=== PATIENT | male | born 1975 | race Caucasian/White ===

== ENCOUNTER 2021-03-16 16:43 | Emergency (ER) | payer SELFPAY ==
[~2021-03-16] VITALS: Ht 165.1 cm; Wt 68.2 kg
[~2021-03-16 16:43] MED LIST: NOCURR
[2021-03-16 18:59] LABS: BASOPHILS % (AUTO) 0.4 % (0.0-2.0); EOSINOPHILS % (AUTO) 1.6 % (1.0-6.0); HEMATOCRIT 45.5 % (41-53); HEMOGLOBIN 15.4 g/dL (13.5-17.5); LYMPHOCYTES % (AUTO) 21.5 % (22.0-44.0); MEAN CORPUSCULAR HEMOGLOBIN 26.9 pg (26.0-34.0); MEAN CORPUSCULAR HGB CONC 33.7 G/dL (31.0-37.0); MEAN CORPUSCULAR VOLUME 80 fL (80-100); MONOCYTES # (AUTO) 0.7 K/uL (0.1-1.0); MONOCYTES % (AUTO) 7.2 % (2.0-9.0); NEUTROPHILS # (AUTO) 6.4 K/uL (1.8-7.7); NEUTROPHILS % (AUTO) 69.3 % (40.0-70.0); PLATELET COUNT (AUTO) 327 K/uL (150-450); RED CELL DISTRIBUTION WIDTH 13.2 % (11.5-14.5)
[2021-03-16] MEDS ORDERED: MECLIZINE HCL 25 MG TABLET PO ONE (19:00)
[2021-03-16 19:16] LABS: ANION GAP 8 mmol/L (8-16); CALCIUM, TOTAL 8.7 mg/dL (8.8-10.5); CARBON DIOXIDE 28 mmol/L (22-29); CHLORIDE 100 mmol/L (98-107); CREATININE 0.81 mg/dL (0.60-1.30); GLOMERULAR FILTR. RATE CALC > 60 mL/min (>60); GLUCOSE,RANDOM 358 mg/dL (70-110); SODIUM SERUM 136 mmol/L (136-145); UREA NITROGEN, BLOOD 18 mg/dL (7-18)
[2021-03-16 19:21] LABS: ALANINE AMINOTRANSFERASE 30 U/L (12-78); ALBUMIN 3.8 g/dL (3.4-5.0); ALKALINE PHOSPHATASE 95 U/L (46-116); ASPARTATE AMINOTRANSFERASE 12 U/L (15-37); BILIRUBIN,TOTAL 0.7 mg/dL (0.1-1.0); TOTAL PROTEIN, SERUM 7.3 g/dL (6.4-8.2)
[2021-03-16 20:02] VITALS: BP 146/98
== END 2021-03-16 20:15 | disposition home or self-care (01) ==
LOC: EMS 16:47
DX: R73.9 Hyperglycemia, unspecified (principal); R42 Dizziness and giddiness; R51.9 Headache, unspecified
CPT/HCPCS: 70450; 80053; 85025; 99284

== ENCOUNTER 2021-11-16 22:35 | Inpatient (IN) | payer OTHER ==
[~2021-11-16] VITALS: Ht 165.1 cm; Wt 78.0 kg
[2021-11-16] MEDS ORDERED: ACETAMINOPHEN 500 MG TABLET PO ONE (23:15)
[2021-11-16] MEDS ORDERED: PIPERACILLIN SODIUM/TAZOBACTAM 4.5 GM in DEXTROSE 5%-WATER 100 ML IV ONE (23:15)
[2021-11-16] MEDS ORDERED: SODIUM CHLORIDE 0.9% 1,000 ML IV ONE (23:15)
[2021-11-16] MEDS ORDERED: SODIUM CHLORIDE 0.9% 2,200 ML IV ONE (23:30)
[2021-11-16 23:41] LABS: BASOPHILS % (AUTO) 0.7 % (0.0-2.0); HEMATOCRIT 45.7 % (41-53); HEMOGLOBIN 15.8 g/dL (13.5-17.5); MEAN CORPUSCULAR HEMOGLOBIN 26.9 pg (26.0-34.0); MEAN CORPUSCULAR HGB CONC 34.5 G/dL (31.0-37.0); MEAN CORPUSCULAR VOLUME 78 fL (80-100); MONOCYTES # (AUTO) 0.2 K/uL (0.1-1.0); MONOCYTES % (AUTO) 2.8 % (2.0-9.0); NEUTROPHILS # (AUTO) 4.1 K/uL (1.8-7.7); NEUTROPHILS % (AUTO) 64.5 % (40.0-70.0); PLATELET COUNT (AUTO) 201 K/uL (150-450); RED BLOOD CELL COUNT(AUTO) 5.85 MIL/uL (4.50-5.90); RED CELL DISTRIBUTION WIDTH 12.7 % (11.5-14.5)
[2021-11-16 23:52] LABS: COVID AG,FIA SOURCE NASAL SWAB
[2021-11-17 00:09] LABS: ALANINE AMINOTRANSFERASE 56 U/L (12-78); ALBUMIN 3.7 g/dL (3.4-5.0); ALKALINE PHOSPHATASE 177 U/L (46-116); ANION GAP 10 mmol/L (8-16); ASPARTATE AMINOTRANSFERASE 56 U/L (15-37); BILIRUBIN,TOTAL 0.7 mg/dL (0.1-1.0); CALCIUM, TOTAL 9.3 mg/dL (8.8-10.5); CARBON DIOXIDE 23 mmol/L (22-29); CHLORIDE 100 mmol/L (98-107); CREATININE 1.12 mg/dL (0.60-1.30); GLOMERULAR FILTR. RATE CALC > 60 mL/min (>60); POTASSIUM 3.9 mmol/L (3.5-5.1); SODIUM SERUM 133 mmol/L (136-145); TOTAL PROTEIN, SERUM 7.9 g/dL (6.4-8.2); UREA NITROGEN, BLOOD 20 mg/dL (7-18)
[2021-11-17 00:20] LABS: GLUCOSE,RANDOM 474 mg/dL (70-110)
[2021-11-17 00:22] LABS: B-TYPE NATRIURETIC PEPTIDE 25 pg/mL (0-100)
[2021-11-17] MEDS ORDERED: IOHEXOL 350 MG/ML 100 ML VIAL ONE (00:22)
[2021-11-17] MEDS ORDERED: SODIUM CHLORIDE 0.9% 100 ML ONE (00:22)
[2021-11-17] MEDS ORDERED: INSULIN REGULAR, HUMAN 100 UNITS/ML IVP ONE (00:30)
[2021-11-17] MEDS ORDERED: MAGNESIUM HYDROXIDE SUSPENSION 30 ML UDCUP PO PRN (00:45)
[2021-11-17] MEDS ORDERED: HYDROCODONE/ACETAMINOPHEN 5-325 MG TABLET PO PRN (00:45)
[2021-11-17] MEDS ORDERED: ONDANSETRON HCL 4 MG/2 ML VIAL IVP PRN (00:45)
[2021-11-17] MEDS ORDERED: BISACODYL 10 MG RECTAL RECTAL SUPPOSITORY PR PRN (00:45)
[2021-11-17] MEDS ORDERED: DEXTROSE 50%-WATER 25 GM/50 ML SYRINGE IVP PRN (00:45)
[2021-11-17] MEDS ORDERED: SODIUM CHLORIDE 0.9% 1,000 ML IV ONE ×2 (00:45→01:45)
[2021-11-17] MEDS ORDERED: MORPHINE SULFATE 2 MG/ML SYRINGE IVP PRN (00:45)
[2021-11-17] MEDS ORDERED: ACETAMINOPHEN 325 MG TABLET PO PRN (00:45)
[2021-11-17] MEDS ORDERED: ZOLPIDEM TARTRATE 5 MG TABLET PO PRN (00:45)
[2021-11-17 01:41] LABS: LACTIC ACID 2.2 mmol/L (0.4-2.0)
[2021-11-17 01:46] LABS: GLUCOMETER DEV NAME(LOC) ERT.5; GLUCOSE,POINT OF CARE 325 MG/DL (70-110)
[2021-11-17] MEDS ORDERED: ASPIRIN 81 MG CHEWABLE TABLET PO ONE (04:00)
[2021-11-17 05:07] LABS: APPEARANCE,URINE CLEAR (CLEAR); BILIRUBIN,URINE NEGATIVE (NEGATIVE); GLUCOSE, URINE (UA) >=1000 mg/dL (NEGATIVE); LEUKOCYTE ESTERASE ,URINE NEGATIVE (NEGATIVE); NITRATE,URINE POSITIVE (NEGATIVE); OCCULT BLOOD,URINE TRACE (NEGATIVE); PH,URINE 5.5 (5.0-8.0); PROTEIN,URINE 30-70 mg/dL (NEGATIVE); UROBILINOGEN,URINE <=1.0 mg/dL (<=1.0)
[2021-11-17 05:11] LABS: SPECIFIC GRAVITIY, URINE > 1.035 (1.003-1.030)
[2021-11-17 05:29] LABS: BACTERIA,URINE Few /HPF (None Seen)
[2021-11-17] MEDS: PIPERACILLIN/TAZO 3.375 GM/D5W 50 ML IV SCH ×4 (06:00→23:26)
[2021-11-17] MEDS ORDERED: HEPARIN SODIUM,PORCINE 5,000 UNITS/ML VIAL IVP PRN ×2 (07:00)
[2021-11-17 07:14] LABS: BASOPHILS % (AUTO) 0.3 % (0.0-2.0); EOSINOPHILS % (AUTO) 0 % (1.0-6.0); HEMATOCRIT 39.3 % (41-53); HEMOGLOBIN 13.4 g/dL (13.5-17.5); LYMPHOCYTES # (AUTO) 0.5 K/uL (1.0-4.8); LYMPHOCYTES % (AUTO) 4.8 % (22.0-44.0); MEAN CORPUSCULAR HEMOGLOBIN 26.7 pg (26.0-34.0); MEAN CORPUSCULAR HGB CONC 34.2 G/dL (31.0-37.0); MEAN CORPUSCULAR VOLUME 78 fL (80-100); MONOCYTES # (AUTO) 0.6 K/uL (0.1-1.0); MONOCYTES % (AUTO) 6.4 % (2.0-9.0); NEUTROPHILS # (AUTO) 8.8 K/uL (1.8-7.7); PLATELET COUNT (AUTO) 220 K/uL (150-450); RED BLOOD CELL COUNT(AUTO) 5.04 MIL/uL (4.50-5.90); RED CELL DISTRIBUTION WIDTH 12.9 % (11.5-14.5)
[2021-11-17 07:17] LABS: NEUTROPHILS % (AUTO) 88.5 % (40.0-70.0)
[2021-11-17 07:32] LABS: INR 1.1 (0.9-1.1); PROTHROMBIN TIME 11.9 SEC (9.4-11.6)
[2021-11-17] MEDS ORDERED: HEPARIN SODIUM,PORCINE 5,000 UNITS/ML VIAL SQ SCH (08:00)
[2021-11-17 08:50] VITALS: BP 109/65
[2021-11-17 09:28] VITALS: BP 166/98
[2021-11-17] MEDS: HEPARIN SODIUM 25000 UNITS/D5W 250 ML IV PRN (10:45)
[2021-11-17] MEDS: DOCUSATE SODIUM 100 MG CAPSULE PO SCH ×2 (10:45→21:12)
[2021-11-17] MEDS: PANTOPRAZOLE SODIUM 40 MG DR TABLET PO SCH (10:45)
[2021-11-17] MEDS: INSULIN GLARGINE,HUM.REC.ANLOG 100 UNITS/ML SQ SCH ×2 (10:46→21:06)
[2021-11-17] MEDS: INSULIN LISPRO 100 UNITS/ML SQ PRN ×3 (11:40→21:05)
[2021-11-17] MEDS ORDERED: NITROGLYCERIN 0.4 MG SUBLINGUAL TABLET #25 SL PRN (11:45)
[2021-11-17] MEDS ORDERED: SODIUM CHLORIDE 0.9% 250 ML IV ONE (11:49)
[2021-11-17 12:04] VITALS: BP 114/60
[2021-11-17] MEDS: ATORVASTATIN CALCIUM 40 MG TABLET PO SCH (14:43)
[2021-11-17] MEDS: ASPIRIN 81 MG DR TABLET PO SCH (14:44)
[2021-11-17 16:00] VITALS: BP 104/67
[2021-11-17 19:21] VITALS: BP 102/66
[2021-11-17 20:21] LABS: GLUCOMETER DEV NAME(LOC) 5N.1C; GLUCOSE,POINT OF CARE 312 MG/DL (70-110)
[2021-11-17] MEDS: METOPROLOL TARTRATE 25 MG TABLET PO SCH (21:12)
[2021-11-17 23:41] VITALS: BP 104/67
[2021-11-18 02:01] LABS: GLUCOMETER DEV NAME(LOC) 5S.2B; GLUCOSE,POINT OF CARE 204 MG/DL (70-110)
[2021-11-18 02:01] LABS: GLUCOMETER DEV NAME(LOC) 5S.2B; GLUCOSE,POINT OF CARE 228 MG/DL (70-110)
[2021-11-18 04:34] VITALS: BP 106/70
[2021-11-18] MEDS: PIPERACILLIN/TAZO 3.375 GM/D5W 50 ML IV SCH ×2 (06:26→11:53)
[2021-11-18 06:27] LABS: BASOPHILS % (AUTO) 0.8 % (0.0-2.0); EOSINOPHILS % (AUTO) 1.2 % (1.0-6.0); HEMATOCRIT 37.6 % (41-53); HEMOGLOBIN 12.8 g/dL (13.5-17.5); LYMPHOCYTES # (AUTO) 1.8 K/uL (1.0-4.8); LYMPHOCYTES % (AUTO) 22.3 % (22.0-44.0); MEAN CORPUSCULAR HEMOGLOBIN 26.5 pg (26.0-34.0); MEAN CORPUSCULAR HGB CONC 34.1 G/dL (31.0-37.0); MEAN CORPUSCULAR VOLUME 78 fL (80-100); MONOCYTES # (AUTO) 0.7 K/uL (0.1-1.0); MONOCYTES % (AUTO) 9.3 % (2.0-9.0); NEUTROPHILS # (AUTO) 5.4 K/uL (1.8-7.7); NEUTROPHILS % (AUTO) 66.4 % (40.0-70.0); PLATELET COUNT (AUTO) 228 K/uL (150-450); RED BLOOD CELL COUNT(AUTO) 4.83 MIL/uL (4.50-5.90)
[2021-11-18] MEDS: HEPARIN SODIUM 25000 UNITS/D5W 250 ML IV PRN (06:28)
[2021-11-18] MEDS: INSULIN LISPRO 100 UNITS/ML SQ PRN ×2 (06:37→11:52)
[2021-11-18 06:50] LABS: HEMOGLOBIN A1C 12.9 % (3.8-5.6)
[2021-11-18 06:56] LABS: ANION GAP 4 mmol/L (8-16); CALCIUM, TOTAL 7.6 mg/dL (8.8-10.5); CARBON DIOXIDE 28 mmol/L (22-29); CHLORIDE 105 mmol/L (98-107); CHOL/HDL RATIO 3.8 (4.2-7.3); CHOLESTEROL 102 mg/dL (131-200); CREATININE 0.73 mg/dL (0.60-1.30); GLOMERULAR FILTR. RATE CALC > 60 mL/min (>60); GLUCOSE,RANDOM 264 mg/dL (70-110); HDL CHOLESTEROL 27 mg/dL (40-60); LDL CHOL (CALC.) 53 mg/dL (0-130); POTASSIUM 3.3 mmol/L (3.5-5.1); SODIUM SERUM 137 mmol/L (136-145); TRIGLYCERIDES 112 mg/dL (15-150); UREA NITROGEN, BLOOD 17 mg/dL (7-18)
[2021-11-18 07:27] VITALS: BP 119/75
[2021-11-18] MEDS: METOPROLOL TARTRATE 25 MG TABLET PO SCH (09:00)
[2021-11-18] MEDS: ATORVASTATIN CALCIUM 40 MG TABLET PO SCH (09:07)
[2021-11-18] MEDS: INSULIN GLARGINE,HUM.REC.ANLOG 100 UNITS/ML SQ SCH (09:07)
[2021-11-18] MEDS: DOCUSATE SODIUM 100 MG CAPSULE PO SCH (09:07)
[2021-11-18] MEDS: ASPIRIN 81 MG DR TABLET PO SCH (09:08)
[2021-11-18] MEDS: PANTOPRAZOLE SODIUM 40 MG DR TABLET PO SCH (09:08)
[2021-11-18 11:34] VITALS: BP 126/75
[2021-11-18 12:56] LABS: GLUCOMETER DEV NAME(LOC) 5S.2B; GLUCOSE,POINT OF CARE 221 MG/DL (70-110)
[2021-11-18 12:56] LABS: GLUCOMETER DEV NAME(LOC) 5N.1C; GLUCOSE,POINT OF CARE 218 MG/DL (70-110)
[2021-11-18 12:56] LABS: GLUCOMETER DEV NAME(LOC) 5S.2B; GLUCOSE,POINT OF CARE 192 MG/DL (70-110)
[2021-11-18 13:00] VITALS: BP 148/89
[2021-11-18] MEDS ORDERED: POTASSIUM CHLORIDE 20 MEQ ER TABLET PO ONE (14:45)
[2021-11-18] MEDS ORDERED: ASPI-1450 PO (15:31)
[2021-11-18] MEDS ORDERED: DOCU-385 PO (15:32)
[2021-11-18] MEDS ORDERED: ATOR40TA28 PO (15:32)
[2021-11-18] MEDS ORDERED: PANT-31 PO (15:35)
[2021-11-18] MEDS ORDERED: INSLAN SQ (15:35)
[2021-11-18] MEDS ORDERED: ZOSY3375FZ IV (15:36)
[2021-11-18] MEDS ORDERED: BISA10SU11 PR (15:37)
[2021-11-18] MEDS ORDERED: ACET-2247 PO (15:37)
[2021-11-18] MEDS ORDERED: HYDR-4723 PO (15:39)
[2021-11-18] MEDS ORDERED: INSU100V SQ (15:41)
[2021-11-18] MEDS ORDERED: MAGN-160 PO (15:42)
[2021-11-18] MEDS ORDERED: MORP2VIA2 IVP (15:43)
[2021-11-18] MEDS ORDERED: NITR0.4T52 SL (15:44)
== END 2021-11-18 15:15 | disposition short-term general hospital (02) | DRG 871 ==
LOC: EMS 22:35 → 5S 11-17 07:48
PROVIDERS: ADMIT Internal Medicine; ATTEND Internal Medicine
DX: A41.9 Sepsis, unspecified organism (principal); I21.4 Non-ST elevation (NSTEMI) myocardial infarction; E11.65 Type 2 diabetes mellitus with hyperglycemia; Z20.822 Contact with and (suspected) exposure to COVID-19; E87.6 Hypokalemia; R65.20 Severe sepsis without septic shock; Z79.4 Long term (current) use of insulin; Z87.11 Personal history of peptic ulcer disease
CPT/HCPCS: 71045; 74177; 80048; 80053; 80061; 81001; 82271; 82962; 83036; 83605; 83880; 84484; 85025; 85610; 85730; 86850; 86900; 86901; 87040; 93005; 93306; 99291; J1644; J1815; J2405; J2543; J7030; J7050; J7060; Q9967; 36415-L1; 36415-TC

== ENCOUNTER 2023-06-04 23:03 | Emergency (ER) | payer OTHER ==
[~2023-06-04] VITALS: Ht 162.6 cm; Wt 77.3 kg
[~2023-06-04 23:03] MED LIST changes: +ACET-2247 PO; +ASPI-1450 PO; +ATOR40TA28 PO; +BISA10SU11 PR; +DOCU-385 PO; +HYDR-4723 PO; +INSLAN SQ; +INSU100V SQ; +MAGN-169 PO; +MORP2VIA2 IVP; +NITR0.4T52 SL; -NOCURR; +PANT-31 PO; +ZOSY3375FZ IV
[2023-06-04 23:18] VITALS: TEMP 98.3
[2023-06-04] MEDS ORDERED: METF-1211 PO (23:21)
[2023-06-05] MEDS ORDERED: LIDOCAINE 1% 10 ML VIAL SQ ONE (01:15)
[2023-06-05] MEDS ORDERED: CEPH-558 PO (02:12)
[2023-06-05] MEDS ORDERED: PERTUSS(ACELL),DIPH,TET VAC/PF 0.5 ML SYRINGE IM. ONE (02:15)
[2023-06-05 02:51] VITALS: BP 145/89; PULSE 60; RESP 16
== END 2023-06-05 02:52 | disposition home or self-care (01) ==
LOC: EMS 23:04
DX: S61.412A Laceration without foreign body of left hand, initial encounter (principal); E11.9 Type 2 diabetes mellitus without complications; X58.XXXA Exposure to other specified factors, initial encounter; Y93.89 Activity, other specified; Y92.89 Other specified places as the place of occurrence of the external cause; Y99.8 Other external cause status
CPT/HCPCS: 99283; 12002; 90715; 90471; J3490

== ENCOUNTER 2025-07-08 00:45 | Emergency (ER) | payer OTHER ==
[~2025-07-08] VITALS: Ht 162.6 cm; Wt 73.6 kg
[~2025-07-08 00:45] MED LIST changes: -ACET-2247 PO; -ASPI-1450 PO; -BISA10SU11 PR; +CEPH-558 PO; -DOCU-385 PO; -HYDR-4723 PO; -INSLAN SQ; -INSU100V SQ; -MAGN-169 PO; +METF-1211 PO; -MORP2VIA2 IVP; -NITR0.4T52 SL; -PANT-31 PO; -ZOSY3375FZ IV
[2025-07-08 00:46] VITALS: TEMP 97.9
[2025-07-08 01:25] LABS: PLATELET COUNT (AUTO) 280 K/uL (150-450); RED BLOOD CELL COUNT(AUTO) 5.43 MIL/uL (4.50-5.90); RED CELL DISTRIBUTION WIDTH 13.2 % (11.5-14.5); WHITE BLOOD COUNT (AUTO) 6.7 K/uL (4.5-11.0)
[2025-07-08 01:37] LABS: CALCIUM, TOTAL 9.0 mg/dL (8.8-10.5); CREATININE 0.98 mg/dL (0.60-1.30); GLOMERULAR FILTR. RATE CALC > 60 mL/min (>60); SODIUM SERUM 135 mmol/L (136-145); UREA NITROGEN, BLOOD 12 mg/dL (7-18)
[2025-07-08 01:42] LABS: ASPARTATE AMINOTRANSFERASE 19 U/L (15-37); TOTAL PROTEIN, SERUM 7.7 g/dL (6.4-8.2)
[2025-07-08 01:44] LABS: GLUCOSE,RANDOM 431 mg/dL (70-110)
[2025-07-08 01:46] LABS: TROPONIN I-HIGH SENSITIVITY 19 ng/L (<76)
[2025-07-08 01:48] LABS: ACETONE,BLOOD NEGATIVE (NEGATIVE)
[2025-07-08 01:59] LABS: APPEARANCE,URINE CLEAR (CLEAR); GLUCOSE, URINE (UA) >=1000 mg/dL (NEGATIVE); LEUKOCYTE ESTERASE ,URINE NEGATIVE (NEGATIVE); NITRATE,URINE NEGATIVE (NEGATIVE); OCCULT BLOOD,URINE NEGATIVE (NEGATIVE); SPECIFIC GRAVITIY, URINE 1.006 (1.003-1.030)
[2025-07-08] MEDS: SODIUM CHLORIDE 0.9% 1,000 ML IV ONE (02:23)
[2025-07-08 02:26] LABS: SQUAMOUS EPITHELIAL CELL,UR Few /LPF (None Seen)
[2025-07-08] MEDS: INSULIN REGULAR, HUMAN 100 UNITS/ML IVP ONE (02:27)
[2025-07-08] MEDS: PB/HYOSCY/ATR/SCOP/LIDO/MAALOX 55 ML BOTTLE PO ONE (02:55)
[2025-07-08] MEDS ORDERED: POLY17PO62 PO (03:24)
[2025-07-08 04:10] VITALS: BP 145/82; PULSE 69; RESP 17; O2SAT 98
== END 2025-07-08 04:12 | disposition home or self-care (01) ==
LOC: EMS 00:45
DX: K59.00 Constipation, unspecified (principal); R10.13 Epigastric pain; R42 Dizziness and giddiness; R06.02 Shortness of breath; E11.65 Type 2 diabetes mellitus with hyperglycemia; Z79.899 Other long term (current) drug therapy
CPT/HCPCS: 99285; 96374; 96361; 71045; 80048; 80076; 81001; 82009; 82962; 83880; 84484; 85025; 87040; 36415; 74018; 93005; J1815; J7030